=== PATIENT | female | born 1940 | race Caucasian/White ===

== ENCOUNTER → 2016-06-23 | Outpatient (CLI) | payer MEDICARE ==
--- NOTE | 2016-06-23 11:29 | XR ---
EXAMINATION TYPE: XR chest 2V DATE OF EXAM: 06/23/2016 11:21 AM COMPARISON: 05/28/2015 HISTORY: Shortness of breath TECHNIQUE: Frontal and lateral views of the chest are obtained. FINDINGS: Scattered senescent parenchymal changes noted. Hyperinflation compatible with COPD. No evidence for infiltrate. No evidence for atelectasis. Heart size is stable. Mediastinal structures are stable and grossly unremarkable. No evidence for hilar prominence. Degenerative changes dorsal spine. IMPRESSION: 1. No evidence for acute pulmonary disease.
--- NOTE | 2016-06-23 11:46 | MM ---
Reason for exam: additional evaluation requested from prior study. Last mammogram was performed 1 year and 1 month ago. History: Patient is postmenopausal and has history of breast cancer at age 67. Family history of breast cancer in mother at age 50. Excisional biopsy of the left breast, November 05, 2007. Malignant left mammotome panel of the left breast, October 24, 2007. Lumpectomy of the left breast, 2007. Benign left US cyst aspiration of the left breast, June 23, 2005. Benign US left guided mammotome of the left breast, June 23, 2005. Benign cyst aspiration of the left breast. Taking other hormone for 5 years beginning at age 67. Physical Findings: Nurse did not find any significant physical abnormalities on exam. MG 3D Diag Mammo W/Cad [facility] Bilateral CC and MLO view(s) were taken. Prior study comparison: May 28, 2015, bilateral MG 3d diag mammo w/cad [facility]. May 20, 2014, bilateral MG diagnostic mammo w CAD [facility]. January 11, 2013, CAD bilateral diagnostic mammogram. January 11, 2012, CAD bilateral diagnostic mammogram. The breast tissue is heterogeneously dense. This may lower the sensitivity of mammography. Post surgical changes of lumpectomy in the left breast. No significant new findings when compared with previous films. These results were verbally communicated with the patient and result sheet given to the patient on 06/23/16. ASSESSMENT: Benign, BI-RAD 2 RECOMMENDATION: Follow-up diagnostic mammogram of both breasts in 1 year.
== END | disposition home or self-care (01) ==
LOC: RADMAMWWP 09:58
PROVIDERS: ATTEND Internal Medicine Hematology & Oncology
DX: Z08 Encounter for follow-up examination after completed treatment for malignant neoplasm (principal); Z85.3 Personal history of malignant neoplasm of breast; C50.012 Malignant neoplasm of nipple and areola, left female breast; Z17.0 Estrogen receptor positive status [ER+]
CPT/HCPCS: 71020; G0204; G0279

== ENCOUNTER → 2017-06-27 | Outpatient (CLI) | payer MEDICARE ==
--- NOTE | 2017-06-27 11:21 | MM ---
Reason for exam: additional evaluation requested from prior study. Last mammogram was performed 1 year ago. History: Patient is postmenopausal and has history of breast cancer at age 67. Family history of breast cancer in mother at age 50. Excisional biopsy of the left breast, November 05, 2007. Malignant left mammotome panel of the left breast, October 24, 2007. Lumpectomy of the left breast, 2007. Benign left US cyst aspiration of the left breast, June 23, 2005. Benign US left guided mammotome of the left breast, June 23, 2005. Benign cyst aspiration of the left breast. Taking other hormone for 5 years beginning at age 67. Physical Findings: Nurse did not find any significant physical abnormalities on exam. MG Diagnostic Mammo w CAD [facility] Bilateral CC and MLO view(s) were taken. Prior study comparison: June 23, 2016, bilateral MG 3d diag mammo w/cad [facility]. May 28, 2015, bilateral MG 3d diag mammo w/cad [facility]. The breast tissue is heterogeneously dense. This may lower the sensitivity of mammography. Finding #1: There is stable architectural distortion in the left breast consistent with previous surgery. Finding #2: There are typically benign calcifications in both breasts. No significant changes in finding since June 23, 2016 and May 28, 2015. These results were verbally communicated with the patient and result sheet given to the patient on 06/27/17. ASSESSMENT: Benign, BI-RAD 2 RECOMMENDATION: Follow-up diagnostic mammogram of both breasts in 1 year.
== END ==
LOC: RADMAMWWP 10:07
PROVIDERS: ATTEND Internal Medicine Hematology & Oncology
DX: Z85.3 Personal history of malignant neoplasm of breast (principal)
CPT/HCPCS: 77066

== ENCOUNTER → 2018-06-28 | Outpatient (CLI) | payer MEDICARE ==
--- NOTE | 2018-07-01 07:13 | MM ---
Reason for exam: additional evaluation requested from prior study. Last mammogram was performed 1 year ago. History: Patient is postmenopausal and has history of breast cancer at age 67. Family history of breast cancer in mother at age 50. Excisional biopsy of the left breast, November 05, 2007. Malignant left mammotome panel of the left breast, October 24, 2007. Lumpectomy of the left breast, 2007. Benign left US cyst aspiration of the left breast, June 23, 2005. Benign US left guided mammotome of the left breast, June 23, 2005. Benign cyst aspiration of the left breast. Taking other hormone for 5 years beginning at age 67. Physical Findings: Nurse did not find any significant physical abnormalities on exam. MG Diagnostic Mammo w CAD [facility] Bilateral CC and MLO view(s) were taken. Prior study comparison: June 27, 2017, bilateral MG diagnostic mammo w CAD [facility]. June 23, 2016, bilateral MG 3d diag mammo w/cad [facility]. The breast tissue is heterogeneously dense. This may lower the sensitivity of mammography. There is a distortion in the left upper posterion breast. There is benign-appearing vascular calcifications in the right breast. No discrete abnormality. These results were verbally communicated with the patient and result sheet given to the patient on 06/28/18. ASSESSMENT: Benign, BI-RAD 2 RECOMMENDATION: Follow-up diagnostic mammogram of both breasts in 1 year.
== END ==
LOC: RADMAMWWP 09:51
PROVIDERS: ATTEND Internal Medicine Hematology & Oncology
DX: Z08 Encounter for follow-up examination after completed treatment for malignant neoplasm (principal); Z85.3 Personal history of malignant neoplasm of breast
CPT/HCPCS: 77066

== ENCOUNTER → 2023-01-19 | Outpatient (CLI) | payer MEDICARE ==
--- NOTE | 2023-01-25 07:43 | USB ---
Reason for Exam: Clinical finding. Patient History: Menarche at age 15. First Full-Term at age 20. Postmenopausal. Breast cancer, left, age 67. Previous chemotherapy at age 67. 2007, Lumpectomy on the Left side. 11/05/2007, Excisional Biopsy on the Left side. Benign Cyst Aspiration on the left side. 10/24/2007, Malignant Core Biopsy on the left side. 06/23/2005, Benign Core Biopsy on the left side. 06/23/2005, Benign Cyst Aspiration on the left side. Mother had breast cancer, age 50. Technique: Method: Targeted. Prior Study Comparison: 06/23/2016 Bilateral Diagnostic Mammogram, [facility]. 06/27/2017 Bilateral Diagnostic Mammogram, [facility]. 06/28/2018 Bilateral Diagnostic Mammogram, [facility]. Findings: The upper section of the breast of the left breast, the axilla of the left breast and the retroareolar of the left breast were scanned. Targeted ultrasound of the superior aspect of the left breast 11:00 to 2:00 including the subareolar region and axilla. This corresponds to the clinician side of palpated abnormality. However, underlying this region at the 12:00 position, 5 cm from the nipple, we note postsurgical shadowing scar. No other solid or cystic lesion. Overall Assessment: Probably benign, BI-RAD 3 Management: Diagnostic Mammogram of the right breast in 6 months. A clinical breast exam by your physician is recommended on an annual basis and results should be correlated with mammographic findings. This exam should not preclude additional follow-up of suspicious palpable abnormalities. Results were given to the patient verbally at the time of exam. Electronically signed and approved by: Jose Alfredo Maya M.D. Radiologist
--- NOTE | 2023-01-25 07:43 | MM ---
Reason for Exam: Clinical finding. Last mammogram was performed 4 year(s) and 7 month(s) ago. Indicated Problems: Lump or thickening of the left side (size 25) for 1 Month(s). Patient History: Menarche at age 15. First Full-Term at age 20. Postmenopausal. Breast cancer, left, age 67. Previous chemotherapy at age 67. 2007, Lumpectomy on the Left side. 11/05/2007, Excisional Biopsy on the Left side. Benign Cyst Aspiration on the left side. 10/24/2007, Malignant Core Biopsy on the left side. 06/23/2005, Benign Core Biopsy on the left side. 06/23/2005, Benign Cyst Aspiration on the left side. Mother had breast cancer, age 50. Prior Study Comparison: 05/28/2015 Bilateral Diagnostic Mammogram, [facility]. 06/23/2016 Bilateral Diagnostic Mammogram, [facility]. 06/27/2017 Bilateral Diagnostic Mammogram, [facility]. 06/28/2018 Bilateral Diagnostic Mammogram, [facility]. Tissue Density: The breast tissue is heterogeneously dense. This may lower the sensitivity of mammography. Findings: Analyzed By CAD. Postsurgical and posttreatment change redemonstrated on the left. Clinician palpated finding in the region of the patient's distortion/scar. Benign vascular calcifications on the right. On the right MLO view, there is a centrally located area of asymmetric density. On additional views, this area does not clearly persist. However, an area of questionable nodularity superiorly at a middle depth becomes apparent on the additional lateral view. As there is no clear correlate on the initial MLO view, are cautionary 6 month follow-up is recommended for this finding. Ultrasound of the left for the clinician palpated area. Overall Assessment: Incomplete: need additional imaging evaluation, BI-RAD 0 Management: Diagnostic Breast Ultrasound of the left breast. Electronically signed and approved by: Jose Alfredo Maya M.D. Radiologist
== END | disposition home or self-care (01) ==
LOC: RADMAMWWP 08:48
PROVIDERS: ATTEND Internal Medicine Hematology & Oncology
DX: C50.012 Malignant neoplasm of nipple and areola, left female breast (principal); G40.301 Generalized idiopathic epilepsy and epileptic syndromes, not intractable, with status epilepticus; K57.30 Diverticulosis of large intestine without perforation or abscess without bleeding; Z17.0 Estrogen receptor positive status [ER+]; Z78.0 Asymptomatic menopausal state; Z80.3 Family history of malignant neoplasm of breast
CPT/HCPCS: 77066; 76642; G0279; 77062

== ENCOUNTER → 2023-07-24 | Outpatient (CLI) | payer MEDICARE ==
--- NOTE | 2023-07-24 13:21 | MM ---
Reason for Exam: Additional evaluation requested from prior study. Last screening mammogram was performed 6 month(s) ago. Patient History: Menarche at age 15. First Full-Term at age 20. Postmenopausal. Breast cancer, left, age 67. Previous chemotherapy at age 67. 2007, Lumpectomy on the Left side. 11/05/2007, Excisional Biopsy on the Left side. Benign Cyst Aspiration on the left side. 10/24/2007, Malignant Core Biopsy on the left side. 06/23/2005, Benign Core Biopsy on the left side. 06/23/2005, Benign Cyst Aspiration on the left side. Mother had breast cancer, age 50. Prior Study Comparison: 06/27/2017 Bilateral Diagnostic Mammogram, [facility]. 06/28/2018 Bilateral Diagnostic Mammogram, [facility]. 01/19/2023 Left US breast limited LT, [facility]. 01/19/2023 Bilateral MG 3D diag mammo w/cad [facility], [facility]. Tissue Density: Left: There are scattered fibroglandular densities. Findings: Analyzed By CAD. Post surgical changes with surgical clips present. No new suspicious masses, calcifications or distortions. Overall Assessment: Benign, BI-RAD 2 Management: Screening Mammogram of the left breast in 6 months. Results were given to the patient verbally at the time of exam. Patient should continue monthly self-breast exams. A clinical breast exam by your physician is recommended on an annual basis. This exam should not preclude additional follow-up of suspicious palpable abnormalities. Note on Shaina scores and lifetime risk: 1. A Shaina score greater than 3% is considered moderate risk. If this is the case, consider specialist referral to assess eligibility for a risk reducing agent. 2. If overall lifetime risk for the development of breast cancer is 20% or higher, the patient may qualify for future screening with alternating mammogram and breast MRI. Electronically signed and approved by: Laci Buckner DO
== END | disposition home or self-care (01) ==
LOC: RADMAMWWP 12:55
PROVIDERS: ATTEND Internal Medicine Hematology & Oncology
DX: R92.322 Mammographic fibroglandular density, left breast (principal); Z85.3 Personal history of malignant neoplasm of breast; Z78.0 Asymptomatic menopausal state; Z80.3 Family history of malignant neoplasm of breast
CPT/HCPCS: 77065; G0279; 77061